=== PATIENT | female | born 1965 | race African-American/Black ===

== ENCOUNTER 2022-06-13 09:59 | Observation (INO) ==
[2022-06-13 10:11] VITALS: BMI 26.4
[2022-06-13] MEDS ORDERED: NS 1,000 ML IV 1,000 ML IV ONE (10:30)
--- NOTE | 2022-06-13 10:30 | ED.ABDFE ---
HPI Time Seen Time Seen by Provider: 06/13/22 10:29 PCP Primary Care Physician: SURAJ VENEGAS Complaint Doctors Chief Complaint Comments: 56 y/o female presents with abdominal pain. Started last pm around 2200. + crampy, located across lower abdomen, radiates into the back. Nothing makes it better, nothing makes it worse. + associated with nausea, vomiting and diarrhea. No report of fever, chills, URI symptoms or bladder issues. + h/o kidney stone decades ago. H/o hysterectomy, gastric bypass. Chief Complaint:: STOMACH CRAMPS STARTED AROUND 10PM LAST NIGHT. DENIES MENSES, LAST PERIOD 8-9 YEARS AGO. PT STATES PAIN IS LOWER ABDOMINAL, RADIATING RIGHT AND LEFT AND AROUND TO BILAT FLANK. ADMITS N/V/D STARTING LAST NIGHT ALSO; WATERY STOOLS. PT ALSO STATES SHE IS SEEING BLOOD WHEN SHE WIPES AFTER BM. Self Treatment fo Chief Complaint: TYLENOL AROUND 0400 THIS AM; NOT EFFECTIVE FOR PAIN RELIEF COVID-19 Coronavirus risk:travel/contact w/high risk person: No Has patient experienced Coronavirus symptoms: No Reviewed Nurses Notes Review: Yes Source History Provided: Patient Mode of arrival Mode of Arrival: Ambulatory Timing Onset of Chief Complaint: 06/12/22 PMH PMH Past Medical History: No Past Surgical History: Yes Surgical History: Hysterectomy Past Surgical History Comment: 2005 GASTRIC BYPASS Family History History of Family Medical Conditions: Yes Family Medical History: Diabetes Mellitus, Cancer and Hypertension Social History Does patient currently use any type of tobacco product: Yes Have you used tobacco products in the last 12 months: Yes Type of Tobacco Use: Cigarettes Does any household member use tobacco: No Alcohol Use: Occasionally Do you use any recreational Drugs:: No Lives With: Spouse Lives Where: Home Travel Risk Coronavirus risk:travel/contact w/high risk person: No Has patient experienced Coronavirus symptoms: No Infectious screening In the last 2 months have you had wt loss of >10#?: NO Have you had fever, night sweats or hemotysis?: No Have you traveled outside the country in the last 6 months?: No Isolation: Standard ROS Review of Systems Constitutional: No Symptoms Reported Eyes: No Symptoms Reported ENTM: No Symptoms Reported Respiratoy: No Symptoms Reported Cardiovascular: No Symptoms Reported Gastrointestinal/Abdominal: See HPI Genitourinary: No Symptoms Reported Neurological: No Symptoms Reported Musculoskeletal: No Symptoms Reported Integumentary: No Symptoms Reported Hematologic/Lymphatic: No Symptoms Reported Psychiatric: No Symptoms Reported All Other Systems: Reviewed and Negative PE Vital Signs Vitals: Temperature 99.1 F Pulse Rate 70 Respiratory Rate 22 Blood Pressure 136/73 O2 Sat by Pulse Oximetry 100 General General Appearance: Alert and In No Apparent Distress Eyes Eye exam: PERRL and EOMI ENT ENT Exam: Mucous Membranes Moist Neck Neck Exam: Normal Inspection Respiratory Respiratory Exam: Normal Lung Sounds Bilat; negative Accessory Muscle Use or Respiratory Distress Cardiovascular Cardiovascular Exam: Regular Rate, Normal Rhythm and Normal Heart Sounds Abdominal Exam Abdominal Exam: Normal Bowel Sounds, Soft and Tenderness (across lower abdomen with guarding, no rebound. ) Back Back Exam: Normal Inspection; negative (R) CVA Tenderness or (L) CVA Tenderness Extremeties Extremities Exam: Normal Inspection and Full ROM; negative Edema Neurologic Neurological Exam: Alert, Oriented X3 and CN II-XII Intact; negative Motor Sensory Deficit Skin Skin Exam: Warm and Dry MDM Differential Diagnosis Differential Diagnosis- Considerations may include:: Appendicitis, Bowel Obstruction, Cholelethiasis, Diverticular disease, Gastroenteritis, Ischemic Bowel, Urinary tract infection and Urolithiasis COURSE Treatment Treatment: Pt with lower abdominal pain, cramping, N/V/D since last pm. W/u initiated. Given IV fluids, IV zofran /toradol. 1230 - pt resting, states feels better. 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 Labs acceptable. CT of the abd/pelvis - shows changes c/w acute appendicitis (enlarged appendix, 12.9 mm, with surriunding inflammation. Pt informed. Will consult with surgery, Dr Aguilar notified, coming to see the pt. Pt remains NPO. ROR Labs Reviewed Laboratory Results Reviewed?: Yes Result Diagrams: 06/13/22 10:48 06/13/22 10:48 Laboratory: WBC 10.2 X10^3/uL (3.6-10.0) H 06/13/22 10:48 RBC 5.08 X10^6/uL (3.5-5.4) 06/13/22 10:48 Hgb 12.8 g/dL (12.0-16.0) 06/13/22 10:48 Hct 37.0 % (36.0-47.0) 06/13/22 10:48 MCV 72.9 fL (80.0-100.0) L 06/13/22 10:48 MCH 25.2 pg (27.0-34.0) L 06/13/22 10:48 MCHC 34.6 g/dL (33.0-35.0) 06/13/22 10:48 RDW 18.5 % (11.6-16.5) H 06/13/22 10:48 Plt Count 244 X10^3/uL (150.0-450.0) 06/13/22 10:48 Plt Count Comment Adequate (ADEQUATE) 06/13/22 10:48 MPV 8.2 fL (7.4-11.0) 06/13/22 10:48 Neut % (Auto) 77.2 % (42.0-75.0) H 06/13/22 10:48 Lymph % (Auto) 17.8 % (21.0-51.0) L 06/13/22 10:48 Eddy % (Auto) 4.5 % (0.0-13.0) 06/13/22 10:48 Eos % (Auto) 0.3 % (0.9-2.9) L 06/13/22 10:48 Baso % (Auto) 0.2 % (0.2-1.0) 06/13/22 10:48 Neut # (Auto) 7.8 x10^3/uL (2.2-4.8) H 06/13/22 10:48 Lymph # (Auto) 1.8 X10^3/uL (1.3-2.9) 06/13/22 10:48 Eddy # (Auto) 0.5 x10^3/uL (0.3-0.8) 06/13/22 10:48 Eos # (Auto) 0.0 x10^3/uL (0.0-0.2) 06/13/22 10:48 Baso # (Auto) 0.0 X10^3/uL (0.0-0.1) 06/13/22 10:48 Absolute Nucleated RBC 0.0 /100WBC 06/13/22 10:48 Plt Morphology Comment Normal (NORMAL) 06/13/22 10:48 RBC Morphology Abnormal (NORMAL) A 06/13/22 10:48 Hypochromasia Slight A 06/13/22 10:48 Anisocytosis Slight A 06/13/22 10:48 Microcytosis Slight A 06/13/22 10:48 Target Cells Slight A 06/13/22 10:48 Sodium 141 mmol/L (136-145) 06/13/22 10:48 Corrected Sodium TNP 06/13/22 10:48 Potassium 3.9 mmol/L (3.5-5.1) 06/13/22 10:48 Chloride 101 mmol/L (98-107) 06/13/22 10:48 Carbon Dioxide 31.1 mmol/L (21-32) 06/13/22 10:48 BUN 8 mg/dL (7-18) 06/13/22 10:48 Creatinine 0.92 mg/dL (0.55-1.02) 06/13/22 10:48 Est GFR (MDRD) Af Amer > 60 (>60) 06/13/22 10:48 Est GFR (MDRD) Non-Af > 60 (>60) 06/13/22 10:48 Glucose 90 mg/dL (65-99) 06/13/22 10:48 Lactic Acid 1.0 mmol/L (0.4-2.0) 06/13/22 10:48 Calcium 9.2 mg/dL (8.5-10.1) 06/13/22 10:48 Corrected Calcium TNP 06/13/22 10:48 Total Bilirubin 0.70 mg/dL (0.2-1.0) 06/13/22 10:48 AST 15 Units/L (15-37) 06/13/22 10:48 ALT 18 Units/L (12-78) 06/13/22 10:48 Alkaline Phosphatase 88 Units/L (46-116) 06/13/22 10:48 Total Protein 8.2 g/dL (6.4-8.2) 06/13/22 10:48 Albumin 4.1 g/dL (3.4-5.0) 06/13/22 10:48 Globulin 4.1 g/dL (2.5-4.5) 06/13/22 10:48 Albumin/Globulin Ratio 1.0 Ratio (1.1-2.1) L 06/13/22 10:48 Lipase 81 Units/L (73-393) 06/13/22 10:48 Specimen Type Clean catch urine 06/13/22 10:59 Urine Color Yellow (YELLOW) 06/13/22 10:59 Urine Appearance Clear (CLEAR) 06/13/22 10:59 Urine pH 7.0 (5.0 - 8.0) 06/13/22 10:59 Ur Specific Henderson 1.015 (1.000-1.030) 06/13/22 10:59 Urine Protein Negative (NEGATIVE) 06/13/22 10:59 Urine Glucose (UA) Negative (NEGATIVE) 06/13/22 10:59 Urine Ketones Negative (NEGATIVE) 06/13/22 10:59 Urine Blood Negative (NEGATIVE) 06/13/22 10:59 Urine Nitrite Negative (NEGATIVE) 06/13/22 10:59 Urine Bilirubin Negative (NEGATIVE) 06/13/22 10:59 Urine Urobilinogen Normal (NORMAL) 06/13/22 10:59 Ur Leukocyte Esterase Negative (NEGATIVE) 06/13/22 10:59 Labs acceptable. XRAY XRAY Interpreted by: Radiologist X-ray Results: + changes c/w acute appendicitis Opioid Opioid Risk Tool Age (Elías box if 16-45): No History of Preadolescent Sexual Abuse: No Total: 0 Total Score Risk Category: Low Risk Copyright: Sandor PIERCE predicting aberrant behaviors Discharge Plan Diagnosis Discharge Problem: Acute appendicitis Discharge Plan Patient Disposition: 30 STILL A PATIENT Condition: Stable Health Concerns: Post Hospitalization: new medications and changes needed to prevent readmission or further decline. Pt educated and given instructions on all concerns. Plan of Treatment: Patient will be going to the OR, for appendectomy, then probable admission. Follow ups/Referrals Follow ups/Referrals: Suraj Venegas [Primary Care Provider] - 3 days
[2022-06-13] MEDS ORDERED: ZOFRAN INJ 4 MG VIAL IVP ONE (10:31)
[2022-06-13] MEDS ORDERED: ZOFRAN INJ 4 MG VIAL ONE ×2 (10:33→14:05)
[2022-06-13] MEDS ORDERED: NS 1,000 ML IV 1,000 ML ONE (10:34)
[2022-06-13] MEDS ORDERED: TORADOL 30 MG VIAL IVP ONE (10:45)
[2022-06-13] MEDS ORDERED: TORADOL 30 MG VIAL ONE ×2 (10:59→14:05)
[2022-06-13 11:05] LABS: BASOPHILS % (AUTO) 0.2 % (0.2-1.0); EOSINOPHILS % (AUTO) 0.3 % (0.9-2.9); HEMOGLOBIN 12.8 g/dL (12.0-16.0); LYMPHOCYTES # (AUTO) 1.8 X10^3/uL (1.3-2.9); LYMPHOCYTES % (AUTO) 17.8 % (21.0-51.0); MEAN CORPUSCULAR HEMOGLOBIN 25.2 pg (27.0-34.0); MEAN CORPUSCULAR HGB CONC 34.6 g/dL (33.0-35.0); MEAN CORPUSCULAR VOLUME 72.9 fL (80.0-100.0); MEAN PLATELET VOLUME 8.2 fL (7.4-11.0); MONOCYTES # (AUTO) 0.5 x10^3/uL (0.3-0.8); MONOCYTES % (AUTO) 4.5 % (0.0-13.0); NEUTROPHILS # (AUTO) 7.8 x10^3/uL (2.2-4.8); NEUTROPHILS % (AUTO) 77.2 % (42.0-75.0); RED BLOOD COUNT 5.08 X10^6/uL (3.5-5.4); RED CELL DISTRIBUTION WIDTH 18.5 % (11.6-16.5); WHITE BLOOD COUNT 10.2 X10^3/uL (3.6-10.0)
[2022-06-13 11:16] LABS: BLOOD UREA NITROGEN 8 mg/dL (7-18); CALCIUM 9.2 mg/dL (8.5-10.1); CARBON DIOXIDE 31.1 mmol/L (21-32); CHLORIDE 101 mmol/L (98-107); CREATININE 0.92 mg/dL (0.55-1.02); SODIUM 141 mmol/L (136-145); eGFR NON BLACK RACES > 60 (>60)
[2022-06-13 11:16] LABS: BILIRUBIN,URINE NEGATIVE (NEGATIVE); BLOOD/HEMOGLOBIN,URINE NEGATIVE (NEGATIVE); GLUCOSE, URINE NEGATIVE (NEGATIVE); KETONES,URINE NEGATIVE (NEGATIVE); LEUKOCYTE ESTERASE ,URINE NEGATIVE (NEGATIVE); NITRITES,URINE NEGATIVE (NEGATIVE); PROTEIN,URINE NEGATIVE (NEGATIVE); UROBILINOGEN,URINE NORMAL (NORMAL)
[2022-06-13 11:17] LABS: ALANINE AMINOTRANSFERASE 18 Units/L (12-78); ALBUMIN 4.1 g/dL (3.4-5.0); ALKALINE PHOSPHATASE 88 Units/L (46-116); ASPARTATE AMINO TRANSFERASE 15 Units/L (15-37); LIPASE 81 Units/L (73-393); TOTAL PROTEIN 8.2 g/dL (6.4-8.2)
[2022-06-13 11:19] LABS: ANISOCYTOSIS SLIGHT; HYPOCHROMASIA SLIGHT; MICROCYTOSIS SLIGHT; PLATELET MORPHOLOGY COMMENT NORMAL (NORMAL); TARGET CELLS SLIGHT
[2022-06-13 11:31] LABS: APPEARANCE,URINE CLEAR (CLEAR); COLOR,URINE YELLOW (YELLOW)
--- NOTE | 2022-06-13 12:20 | CT ---
HISTORYLower abdominal pain, nausea, vomiting, diarrheaSTUDYCT abdomen pelvis with contrastTechnique: Axial post-contrast images with coronal and sagittal reformats. Dose reduction procedures were used with mA/kv adjusted for body size.COMPARISONNoneFINDINGSLung bases are clear. The liver, spleen, adrenal glands, and pancreas appear within normal limits. No opaque stones are present within the gallbladder. The kidneys are unobstructed and without stones or masses. No ureteral calculi are identified. Abdominal aorta is normal. No enlarged intraperitoneal or retroperitoneal lymphadenopathy is identified. The appendix is distended to approximately 12.9 mm. The wall is thickened and demonstrates minimal enhancement. There does appear to be some mild periappendiceal inflammation. Findings are suggestive of acute appendicitis. There are no findings suggestive of enteritis, colitis, or diverticulitis. Examination of the pelvis demonstrated no evidence for pelvic masses, pelvic fluid, or pelvic lymphadenopathy. No bladder abnormality is identified. No lytic or blastic skeletal lesions of significance are identified.IMPRESSIONFindings consistent with acute appendicitis without evidence rupture at this time.Electronically signed by: ANDREEA MORROW (Jun 13, 2022 12:19:40)
[2022-06-13] MEDS ORDERED: SUPRANE ONE ×2 (14:02→14:30)
[2022-06-13] MEDS ORDERED: DIPRIVAN VIAL 20 ML ONE (14:05)
[2022-06-13] MEDS ORDERED: ZEMURON 100 MG VIAL ONE (14:05)
[2022-06-13] MEDS ORDERED: XYLOCAINE 2 % (PLAIN) ONE (14:05)
[2022-06-13] MEDS ORDERED: BRIDION ONE (14:05)
[2022-06-13] MEDS ORDERED: FENTANYL VIAL INJ 100 mcg ONE ×2 (14:05→14:46)
[2022-06-13] MEDS ORDERED: PEPCID 20 MG VIAL ONE (14:05)
[2022-06-13] MEDS ORDERED: OFIRMEV IV 1000 MG VIAL 1,000 MG/100 ML VIAL IV ONE (14:05)
[2022-06-13] MEDS ORDERED: VERSED ONE (14:05)
[2022-06-13] MEDS ORDERED: BACTROBAN TOPICAL OINT ONE (14:13)
[2022-06-13] MEDS ORDERED: LR 1,000 ML IV 1,000 ML IV ONE (14:13)
[2022-06-13] MEDS ORDERED: NS 100 ML IV 100 ML ONE (14:26)
[2022-06-13] MEDS ORDERED: ANCEF VIAL 1 GRAM ONE (14:26)
[2022-06-13] MEDS ORDERED: LEVAQUIN PREMIX IV 500 MG 500 MG/100 ML BAG IV ONE (14:54)
[2022-06-13] MEDS ORDERED: NORMODYNE INJ 20 MG VIAL ONE (15:07)
[2022-06-13] MEDS ORDERED: ZOFRAN INJ 4 MG VIAL IVP PRN ×2 (15:43→16:17)
[2022-06-13] MEDS ORDERED: REGLAN INJ 10 MG VIAL IVP PRN (15:43)
[2022-06-13] MEDS ORDERED: BENADRYL INJ 50 MG VIAL IVP PRN (15:43)
[2022-06-13] MEDS ORDERED: BARHEMSYS INJ IVP PRN (15:43)
[2022-06-13] MEDS ORDERED: DILAUDID INJ IVP PRN ×2 (15:43→16:17)
[2022-06-13] MEDS ORDERED: PHENERGAN INJ 25 MG IM PRN (15:43)
[2022-06-13] MEDS: ZOSYN VIAL 3.375 GRAMS 3.375 G in NS 100 ML IV 100 ML IV SCH ×2 (17:20→23:00)
[2022-06-13] MEDS: D5 1/2 NS 1,000 ML 1,000 ML IV SCH (17:21)
[2022-06-14] MEDS: D5 1/2 NS 1,000 ML 1,000 ML IV SCH (01:42)
[2022-06-14] MEDS: ZOSYN VIAL 3.375 GRAMS 3.375 G in NS 100 ML IV 100 ML IV SCH (05:28)
[2022-06-14 06:23] LABS: BASOPHILS % (AUTO) 0.3 % (0.2-1.0); EOSINOPHILS % (AUTO) 0.9 % (0.9-2.9); HEMATOCRIT 26.3 % (36.0-47.0); HEMOGLOBIN 9.1 g/dL (12.0-16.0); LYMPHOCYTES # (AUTO) 1.6 X10^3/uL (1.3-2.9); LYMPHOCYTES % (AUTO) 34.7 % (21.0-51.0); MEAN CORPUSCULAR HEMOGLOBIN 25.8 pg (27.0-34.0); MEAN CORPUSCULAR HGB CONC 34.8 g/dL (33.0-35.0); MEAN CORPUSCULAR VOLUME 74.2 fL (80.0-100.0); MEAN PLATELET VOLUME 8.2 fL (7.4-11.0); MONOCYTES # (AUTO) 0.3 x10^3/uL (0.3-0.8); MONOCYTES % (AUTO) 5.7 % (0.0-13.0); NEUTROPHILS # (AUTO) 2.8 x10^3/uL (2.2-4.8); NEUTROPHILS % (AUTO) 58.4 % (42.0-75.0); RED BLOOD COUNT 3.54 X10^6/uL (3.5-5.4); RED CELL DISTRIBUTION WIDTH 18.8 % (11.6-16.5); WHITE BLOOD COUNT 4.7 X10^3/uL (3.6-10.0)
[2022-06-14 06:30] LABS: ALANINE AMINOTRANSFERASE 14 Units/L (12-78); ALBUMIN 2.9 g/dL (3.4-5.0); ALKALINE PHOSPHATASE 62 Units/L (46-116); ASPARTATE AMINO TRANSFERASE 12 Units/L (15-37); BLOOD UREA NITROGEN 7 mg/dL (7-18); CALCIUM 7.7 mg/dL (8.5-10.1); CARBON DIOXIDE 27.1 mmol/L (21-32); CHLORIDE 108 mmol/L (98-107); COR CA(FOR HYPOALB) 8.6 mg/dL (8.5-10.1); CREATININE 1.01 mg/dL (0.55-1.02); SODIUM 143 mmol/L (136-145); eGFR NON BLACK RACES > 60 (>60)
[2022-06-14] MEDS ORDERED: POTASSIUM CHL 60 MEQ/NS 0.45% 500 ML IV PRN (06:38)
[2022-06-14] MEDS ORDERED: MAGNESIUM SULFATE 1 GRAM/100 mL PREMIX 1 G/100 ML BAG IV PRN (06:38)
[2022-06-14] MEDS ORDERED: K-DUR TAB 20 MEQ PO PRN (06:38)
[2022-06-14] MEDS ORDERED: KLOR-CON PO PRN (06:38)
[2022-06-14] MEDS ORDERED: MICRO K EXTEN CAP 10 MEQ PO PRN (06:38)
[2022-06-14] MEDS ORDERED: POTASSIUM CHLORIDE LIQ 20 MEQ UDC PO PRN (06:38)
[2022-06-14] MEDS ORDERED: POTASSIUM CHL 40 MEQ/NS 0.45% 500 ML IV PRN (06:38)
[2022-06-14] MEDS ORDERED: K-RIDER 10 MEQ/NS 100 ML 10 MEQ/100 ML BAG IV PRN (06:38)
[2022-06-14 07:12] LABS: ANISOCYTOSIS SLIGHT; MICROCYTOSIS SLIGHT; TARGET CELLS 2+
[2022-06-14 07:26] LABS: PLATELET MORPHOLOGY COMMENT NORMAL (NORMAL)
[2022-06-14] MEDS ORDERED: TYLENOL 325 MG TAB PO PRN (07:56)
[2022-06-14 08:35] VITALS: BP 102/64
[2022-06-14] MEDS ORDERED: FLUZONE II4 or AFLURIA II4 IM ONE (12:07)
== END 2022-06-14 12:40 | disposition home or self-care (01) ==
LOC: MED/SURG 09:59 → ER 09:59 → MED/SURG 16:22
PROVIDERS: ADMIT Surgery; ATTEND Surgery
PROC: APPYLAP (ICD-10-PCS; 2022-06-13 14:15)